=== PATIENT | female | born 2005 | race Caucasian/White ===

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

== ENCOUNTER 2024-07-12 17:32 | Emergency (ER) | payer MEDICAID, OTHER ==
[~2024-07-12] VITALS: Ht 170.2 cm; Wt 54.4 kg
[~2024-07-12 17:32] MED LIST changes: +ONDA-243 PO
[2024-07-12 17:41] VITALS: BP 105/68; PULSE 95; RESP 16; O2SAT 100
[2024-07-12 18:34] VITALS: TEMP 98.2
== END 2024-07-12 18:35 | disposition home or self-care (01) ==
LOC: ER 17:33
DX: M54.2 Cervicalgia (principal); M25.512 Pain in left shoulder
CPT/HCPCS: 72040; 73030; 99284

== ENCOUNTER 2024-11-07 17:58 | Emergency (ER) | payer MEDICAID, OTHER ==
[~2024-11-07] VITALS: Ht 170.2 cm; Wt 54.1 kg
[2024-11-07 18:01] VITALS: BP 113/63; PULSE 82; RESP 18; TEMP 98.4; O2SAT 100
--- NOTE | 2024-11-07 18:56 | Physician Documentation ---
History of Present Illness ~ Chief Complaint: Anxiety Stated Complaint: "I CAN NOT TAKE A DEEP BREATH" Time Seen by MD: 18:07 OK to notify your PCP?: Yes Source: patient Mode of Arrival: POV Exam Limitations: no limitations HPI 19-year-old female with chief complaint shortness of breath after eating several pizza rolls. She does have a history of anxiety but states she has not had anxiety in quite some time and states this feels different from her anxiety. She is not able to describe how this feels different from her anxiety but states that she has to focus on getting a deep breath and has to take deep breaths several times an hour or she is yawning several times an hour to get oxygen. She does not take anything for anxiety. She denies difficulty swallowing, chest pain, lightheadedness, syncopal episodes. No tongue swelling or rashes. No prior allergic reactions. Medication Reconciliation Allergies: Coded Allergies: No Known Allergies (Unverified , 11/07/24) Scheduled Ergocalciferol (Vitamin D), 1 CAP PO DAILY, (Reported) Hydroxyzine Hcl* (Atarax*), 1 TAB PO DAILY, (Reported) Norgestimate-Ethinyl Estradiol (Estarylla 0.25-0.035 mg Tablet), 1 TAB PO DAILY, (Reported) Scheduled PRN Diphenhydramine Hcl (Benadryl), 1 CAP PO Q8H PRN for itching Fluticasone Propionate (Fluticasone Propionate), 1-2 SPRAYS BOTHNARES DAILY PRN for chest congestion, (Reported) ONDANSETRON ODT 4mg tablet (Ondansetron Odt), 1 TAB PO Q6H PRN PRN for nausea/vomiting Past Medical History Past Medical History: *ENT* Past Surgical History: no surgical history Drug Use: none Lives with: Family Lives In: Home Review of Systems All Other Systems at this time: Reviewed and Negative Physical Exam Vital Signs: Temperature: 98.4, Source: Oral, Heart Rate: 82, Respiratory Rate: 18, BP: 113/63, Pulse Oximetry: 100, Weight: 54.090 Physical Exam General Appearance: Alert, WD/WN. NAD. HEENT: NCAT, PERRL, EOMI. Neck: Supple, trachea midline. Cardiovascular: RRR. No m/r/g. Lungs: CTAB. Breathing unlabored Extremities: Normal inspection. No edema. Skin: Warm/dry, normal color Neurological: Alert and oriented x4, normal gait. Psychiatric: Affect congruent with mood. Progress Results/Orders Results/Orders Completed Orders - TYLOR BRANTLEY Diphenhydramine Capsule (Benadryl Capsul (11/07/24 18:30) Medications Received in ER Medications (Trade) Dose Ordered Sig/Chun Route PRN Reason Start Time Stop Time Status Last Admin Dose Admin (Benadryl capsule) 50 mg ONCE ONCE PO 11/07/24 18:30 11/07/24 18:31 DC 11/07/24 18:39 50 MG Vital Signs 11/07/24 18:01 Temp 98.4 Pulse 82 Resp 18 B/P (MAP) 113/63 Pulse Ox 100 Medical Decision Making Differential Dx:Considerations: Include: Alcohol abuse, Anxiety, Bipolar disorder, Conversion disorder, Depression, Encephaloathy, Homicidal, Panic disorder, Personality disorder, Schizophrenia, Substance abuse, Suicidal, Other Departure Time of Disposition: 18:54 Disposition: 01 HOME / SELF CARE / HOMELESS Impression: Primary Impression: SOB (shortness of breath) Condition: Stable Discharge Instructions: Shortness of Breath, Adult, [id number] Additional Instructions: SUSPECT SYMPTOMS DUE TO ANXIETY NO OTHER EXPLANATION RETURN TO ER IF SYMPTOMS WORSE Referrals: NO PRIMARY CARE PROVIDER (PCP) Education Educated: Patient Educated regarding: diagnosis, treatment, need for follow up Signature Scribe Signature: X Attestation: TYLOR BOYKIN Nov 07, 2024 18:56
== END 2024-11-07 19:19 | disposition home or self-care (01) ==
LOC: ER 18:00
DX: R06.02 Shortness of breath (principal); F41.9 Anxiety disorder, unspecified; Z79.899 Other long term (current) drug therapy
CPT/HCPCS: 99282; Q0163

== ENCOUNTER 2024-11-22 18:22 | Emergency (ER) | payer MEDICAID ==
[~2024-11-22] VITALS: Ht 170.2 cm; Wt 56.0 kg
[2024-11-22 18:30] VITALS: BP 115/66
[2024-11-22 19:27] LABS: URINE HCG NEGATIVE (NEG)
[2024-11-22 19:36] LABS: LEUKOCYTE ESTERASE ,URINE NEGATIVE (Neg); NITRITES, URINE NEGATIVE (Neg); OCCULT BLOOD,URINE NEGATIVE (Neg)
[2024-11-22 19:45] LABS: UA COLLECTION TYPE CLN CATCH MIDSTREAM
[2024-11-22 19:46] LABS: SQUAMOUS EPITHELIAL CELL,UR FEW /LPF (FEW)
[2024-11-22 19:47] LABS: AMORPHOUS PHOSPHATES 2+
--- NOTE | 2024-11-22 21:02 | Physician Documentation ---
History of Present Illness ~ Chief Complaint: Vaginal pain Stated Complaint: "IUD INFECTION" Time Seen by MD: 19:40 OK to notify your PCP?: Yes Source: patient Mode of Arrival: POV Exam Limitations: no limitations HPI 19-year-old female presents with yellow whitish vaginal discharge for the past couple of days. She was previously treated for feel vaginosis with metronidazole for 12 days and she finish her course last week. She reports that the symptoms went away and then did return. She has not taken any [id number] medications for these symptoms. She does have a new sexual partner. She has a an IUD in is concerned about a possible infection with it it was placed 2 years ago. Medication Reconciliation Allergies: Coded Allergies: No Known Allergies (Unverified , 11/07/24) Scheduled Doxycycline Monohydrate (Doxycycline Monohydrate), 1 CAP PO Q12H Ergocalciferol (Vitamin D), 1 CAP PO DAILY, (Reported) Hydroxyzine Hcl* (Atarax*), 1 TAB PO DAILY, (Reported) Norgestimate-Ethinyl Estradiol (Estarylla 0.25-0.035 mg Tablet), 1 TAB PO DAILY, (Reported) Tinidazole (Tinidazole), 4 TAB PO DAILY Scheduled PRN Diphenhydramine Hcl (Benadryl), 1 CAP PO Q8H PRN for itching Fluticasone Propionate (Fluticasone Propionate), 1-2 SPRAYS BOTHNARES DAILY PRN for chest congestion, (Reported) ONDANSETRON ODT 4mg tablet (Ondansetron Odt), 1 TAB PO Q6H PRN PRN for nausea/vomiting Past Medical History Past Medical History: *ENT* Past Surgical History: no surgical history Drug Use: none Lives with: Family Lives In: Home Review of Systems All Other Systems at this time: Reviewed and Negative Physical Exam Vital Signs: RN Vital Signs have been reviewed: Yes, Temperature: 97.9, Source: Oral, Heart Rate: 92, Respiratory Rate: 16, BP: 115/66, Pulse Oximetry: 99, Weight: 55.950 Oxygen Flow Rate: 0 Pulse Oximetry Reflects: adequate oxygenation Physical Exam General: Alert, no distress. HEENT: No injection, moist mucous membranes. Neck: Full range of motion. Respiratory: No respiratory distress, equal chest rise and fall. Chest: No accessory muscle use. Cardiovascular: Regular rate and rhythm. Gastrointestinal: Nondistended. Extremities: Normal range of motion, no deformity. Neurologic: Oriented x4. Psychiatric: Normal mood and affect. Skin: Normal color, warm and dry. External Genitalia: normal Vagina: discharge present Cervix: non tender, discharge present Uterus: normal size, nontender Adnexa: normal, non-tender /Pelvic Female nurse Radha as learning support teacher in room during exam. Progress Results/Orders Reviewed/noted all lab results: Yes Results/Orders Orders - SOLEDAD MCCULLOUGH Chlam/Gc Amp Ur (11/22/24 20:34) Completed Orders - SOLEDAD MCCULLOUGH Wet Prep (11/22/24 20:34) Serenity Prep (Fungal Smear) (11/22/24 20:34) Ceftriaxone Im Kit W/Lidocaine (Rocephin (11/22/24 22:00) Medications Received in ER Medications (Trade) Dose Ordered Sig/Chun Route PRN Reason Start Time Stop Time Status Last Admin Dose Admin (Rocephin 1GM IM kit (w/lidocaine diluent)) 500 mg ONCE ONCE IM 11/22/24 22:00 11/22/24 22:05 DC 11/22/24 22:18 500 MG Vital Signs 11/22/24 11/22/24 11/22/24 11/22/24 18:25 18:30 21:56 22:25 Temp 97.9 97.9 97.9 Pulse 92 92 68 Resp 16 16 12 14 B/P (MAP) 115/66 115/66 (82) Pulse Ox 99 99 96 O2 Flow Rate 0 0 Laboratory Tests Test 11/22/24 18:30 11/22/24 21:03 Urine Specimen Description Cln catch midstream Urine Color Yellow Urine Clarity Clear Urine pH 8.0 Urine Specific [place] 1.015 Urine Protein Trace Urine Glucose (UA) Negative Urine Ketones Negative Urine Occult Blood Negative Urine Nitrite Negative Urine Bilirubin Negative Urine Urobilinogen 0.2 Urine Leukocyte Esterase Negative Urine RBC None seen Urine WBC 0-4 Urine Squamous Epithelial Cells Few Urine Amorphous Phosphates 2+ Urine Bacteria Few Urine Culture Indicated Not ind Volume Urine Centrifuged 10 ml Urine HCG, Qualitative Negative Urine Comment Microbiology Date/Time Source Procedure Growth Status 11/22/24 20:56 Genital Cervical SERENITY Preparation - Final Complete Medical Decision Making Additional info obtained from: old records Findings 19-year-old female presents with vaginal discharge. She was recently treated for BV and finish her course of 12 use it metronidazole. She had symptoms totally resolve but they did return a few days ago. She states that the symptoms of discharge which is yellow and white and thick was the same as when she had BV in it has a foul odor. Denies having any fevers vaginal bleeding but she does have some abdominal lower abdominal cramping from time to time. She has been having some episodes of spotting intermittently in between her menstrual cycles. She does have an IUD in his concerned that possibly she has an infection with a. She had this IUD placed about 2 years ago in his not had any issues with it since. She does have a new sexual partner but she does not believe that she has been exposed to any STDs although we will send for a urine gonorrhea and chlamydia just to be sure, which is a send out. We discussed that the COVID takes 3 days to grow but she wants to hold off on doing any treatments unless she is confirmed as being positive for gonorrhea or chlamydia. I did a vaginal exam which revealed thick creamy white yellow the vaginal canal as well as on top of the cervix. The cervix was closed and no lesions noted. bimanual exam was remarkable, no cervical wall tenderness. Ordered a wet mount and SERENITY from the cervical swab results show white blood cells present but no clue cells, motile Trichomonas or yeast, fungus seen. We discussed that there is the rare cramps that you can still have bacterial vaginosis with out having clue cells as her are white blood cells present. I orders Rocephin IM and gave her prescriptions for doxycycline as well as Tinidazole to treat bacterial vaginosis and gonorrhea/chlamydia. I advised her to follow up with her primary care provider or woman's health provider and return back here for any new or worsening symptoms. Genital Diff Dx:Considerations: Include: -Threatened, Blood loss anemia, Dsymenorrhea, Ectopic , Foreign body, Intrauterine , P ID, , UTI Departure Disposition: 01 HOME / SELF CARE / HOMELESS Impression: Primary Impression: Vaginitis Condition: Stable Discharge Instructions: Vaginitis Referrals: NO PRIMARY CARE PROVIDER (PCP) Prescriptions Doxycycline Monohydrate (Doxycycline Monohydrate) 100 Mg Capsule 1 CAP PO Q12H for 7 Days, #14 CAP Prov: SOLEDAD MCCULLOUGH 11/22/24 Tinidazole (Tinidazole) 500 Mg Tablet 4 TAB PO DAILY for 2 Days, #8 TAB 0 Refills Prov: SOLEDAD MCCULLOUGH 11/22/24 Education Educated: Patient Educated regarding: diagnosis, treatment, prognosis, need for follow up Signature Scribe Signature: . Attestation: Scribed for Soledad Mccullough by Soledad Pradhan NP . 11/22/24 23:47 Parts of this note were created using [employer] voice recognition software program. While efforts were made to correct any mistakes made by this voice recognition software program, nonsensical phrases may remain in this note. In addition, there may be errors and syntax, grammar, content and spelling. SOLEDAD MCCULLOUGH Nov 22, 2024 21:02
[2024-11-22] MEDS ORDERED: TINI500T18 PO (21:59)
[2024-11-22] MEDS ORDERED: DOXY-460 PO (21:59)
[2024-11-22] MEDS: CefTRIAXone 1000mg IM Kit (w/lidocaine diluent) IM ONE (22:18)
[2024-11-22 22:25] VITALS: PULSE 68; RESP 14; TEMP 97.9; O2SAT 96
== END 2024-11-22 22:26 | disposition home or self-care (01) ==
LOC: ER 18:23
DX: N76.0 Acute vaginitis (principal)
CPT/HCPCS: 36415; 81001; 81025; 87210; 87491; 87591; 96372; 99284; J0696; Q0112; 99283